=== PATIENT | male | born 1955 | race Native Hawaiian/Other Pacific Islander ===

== ENCOUNTER 2017-02-17 07:42 | Outpatient (CLI) | payer BC | END 2017-02-17 19:03 | disposition home or self-care (01) | LOC: NM 07:42 | DX: I10 Essential (primary) hypertension (principal) | CPT/HCPCS: A9500 ==

== ENCOUNTER 2017-08-19 08:35 | Outpatient (CLI) | payer BC ==
[2017-08-19 09:06] LABS: POTASSIUM 3.8 mmol/L (3.6-5.2); SODIUM 141 mmol/L (136-145)
== END 2017-08-19 19:20 | disposition home or self-care (01) ==
LOC: LABW 08:35
PROVIDERS: Orthopaedic Surgery
DX: Z01.818 Encounter for other preprocedural examination (principal); I10 Essential (primary) hypertension; E11.9 Type 2 diabetes mellitus without complications
CPT/HCPCS: 80048